=== PATIENT | male | born 1990 | race Caucasian/White ===

== ENCOUNTER 2025-09-25 12:03 | Observation (INO) | payer SELFPAY ==
[2025-09-25] VITALS (34 sets, daily range): BP systolic 106–129; BP diastolic 68–88; PULSE 52–75; RESP 12–22; TEMP 36.7–37.3; O2SAT 92–100; BMI 25.4
--- NOTE | ~2025-09-25 | XR_ITS ---
Examination: XR chest 2V Clinical History: chest pain Comparison: None Technique: PA and Lateral Findings: Cardiomediastinal silhouette normal size and configuration. Lungs clear. No acute bony abnormality. IMPRESSION: 1. No acute cardiopulmonary findings. Reviewed, dictated and finalized at location R. TRY FARM WORKER
--- NOTE | 2025-09-25 12:05 | ECG_ITS ---
Test Date: 2025-09-25 12:17:25 Measurements Intervals [place] Rate: 80 P: 43 [place]: 157 QRS: 70 QRSD: 92 T: 37 QT: 382 QTc: 442 Interpretive Statements SINUS RHYTHM No previous ECG available for comparison Electronically Signed On 09-25-2025 12:33:30 LANGUAGE PATHOLOGIST by Estela Tamayo M.D.
[2025-09-25 12:21] LABS: Hematocrit 43.3 % (42.0-52.0); Hemoglobin 15.5 g/dL (14.0-18.0); Immature Granulocyte Percent A 0.3 % (0-0.5); Lymphocytes Absolute Auto 4.28 K/mm3 (0.9-3.2); Mean Corpuscular HGB Conc 35.8 g/dl (32-36); Mean Corpuscular Hemoglobin 30.6 pg (26-34); Mean Corpuscular Volume 85.6 fl (80-100); Nucleated Red Blood Cells Absolute Auto 0.000 K/mm3 (0.0-0.012); Nucleated Red Blood Cells Perc 0.0 % (0.0-0.2); Platelet Count Result 213 k/mm3 (150-375); Red Blood Count 5.06 M/mm3 (4.6-6.20); White Blood Count 7.2 K/mm3 (4.5-10.0)
[2025-09-25 12:36] LABS: Alanine Aminotransferase 20 U/L (6-50); Albumin Level 4.6 g/dL (3.5-5.1); Alkaline Phosphatase 46 U/L (38-126); Anion Gap 6 mmol/L (4-12); Aspartate Amino Transferase 25 U/L (17-59); Bilirubin,Total 1.0 mg/dL (0.2-1.3); Blood Urea Nitrogen 19 mg/dL (9-20); Calcium 9.2 mg/dL (8.4-10.2); Carbon Dioxide 28 mmol/L (22-30); Chloride 103 mmol/L (98-107); Estimated CRCL calculation 110 ml/min; Estimated Glomerular Filt Rate > 60; Glucose 93 mg/dL (65-110); INR 1.1; Lipase 70 U/L (23-300); Potassium 4.2 mmol/L (3.4-5.0); Prothrombin Time 13.9 Seconds (11.1-14.7); Sodium 137 mmol/L (137-145); Total Protein 7.6 g/dL (6.3-8.2)
[2025-09-25 12:37] LABS: Partial Thromboplastin Time 32.0 Seconds (22.3-36.8)
[2025-09-25 12:43] LABS: Troponin I < 0.012 ng/mL (0.000-0.034)
[2025-09-25] MEDS: KETOROLAC 15 MG/ML VIAL (*BKC) IV PUSH (12:45)
[2025-09-25] MEDS: MORPHINE SULFATE (*CRX) 4 MG/ML INJ IV PUSH (12:45)
--- NOTE | 2025-09-25 12:50 | ED.GENADULT ---
HPI - General Adult General Chief complaint: Chest Pain Stated complaint: burn L chest pain Time Seen by Provider: 09/25/25 12:08 History of Present Illness HPI narrative: Patient 35-year-old gentleman presents emergency department with chief complaint of left-sided chest and back pain the patient states that he has been getting lightheaded and having near syncopal episodes with this the patient states the pain is sharp reports that it started primarily in the left back area the patient does originally described the pain as a burning like sensation Related Data Allergies Allergy/AdvReac Type Severity Reaction Status Date / Time No Known Allergies Allergy Verified 09/25/25 12:44 Review of Systems Review of Systems: A 10 system review of systems was completed on the patient and is negative except for what is stated in the HPI. Nursing and ancillary documentation was reviewed. Exam Narrative: GENERAL: Well-appearing, well-nourished, and in no acute distress. HEAD: Normocephalic, atraumatic. EYES: PERRLA and EOMI. ENT: Nares clear, no rhinorrhea or epistaxis. Mucous membranes moist. NECK: Supple. CHEST: Clear to auscultation. No respiratory distress. HEART: Regular rate and rhythm. No murmur heard. Normal peripheral pulses. ABDOMEN: Soft, nontender, nondistended, normal active bowel sounds. EXTREMITIES: Normal range of motion. No edema. SKIN: Warm, dry, no rash. NEURO: No focal deficits. Alert and oriented x3. PSYCH: Normal mood and affect. Course Vital Signs Vital signs: Vital Signs Temperature 36.7 C 09/25/25 12:08 Pulse Rate 74 09/25/25 12:08 Respiratory Rate 20 09/25/25 12:08 Blood Pressure 129/81 09/25/25 12:08 Pulse Oximetry 99 09/25/25 12:08 Oxygen Delivery Room Air 09/25/25 12:08 Temperature 36.7 C 09/25/25 12:08 Pulse Rate 66 09/25/25 15:15 Respiratory Rate 17 09/25/25 15:15 Blood Pressure 112/77 09/25/25 14:46 Pulse Oximetry 98 09/25/25 14:47 Oxygen Delivery Room Air 09/25/25 12:08 Medical Decision Making [facility] Narrative Medical decision making narrative: Differential diagnoses includes ACS, chest wall pain, atypical chest pain EKG showed ischemic changes Initial troponin was negative D-dimer was negative 3 hour increased to 0.026 Vital Signs Vital Signs: Vital Signs Temperature 36.7 C 09/25/25 12:08 Pulse Rate 74 09/25/25 12:08 Respiratory Rate 20 09/25/25 12:08 Blood Pressure 129/81 09/25/25 12:08 Pulse Oximetry 99 09/25/25 12:08 Oxygen Delivery Room Air 09/25/25 12:08 Temperature 36.7 C 09/25/25 12:08 Pulse Rate 66 09/25/25 15:15 Respiratory Rate 17 09/25/25 15:15 Blood Pressure 112/77 09/25/25 14:46 Pulse Oximetry 98 09/25/25 14:47 Oxygen Delivery Room Air 09/25/25 12:08 Lab Data 09/25/25 12:14 09/25/25 12:14 Labs: Lab Results 09/25/25 09/25/25 Range/Units 12:14 14:52 WBC 7.2 (4.5-10.0) K/mm3 RBC 5.06 (4.6-6.20) M/mm3 Hgb 15.5 (14.0-18.0) g/dL Hct 43.3 (42.0-52.0) % MCV 85.6 (80-100) fl MCH 30.6 (26-34) pg MCHC 35.8 (32-36) g/dl RDW 11.5 (11.5-14.5) % Plt Count 213 (150-375) k/mm3 MPV 9.3 (7.4-10.4) fl Immature Gran % (Auto) 0.3 (0-0.5) % Neut % (Auto) 32.9 L (45.5-73.1) % Lymph % (Auto) 59.3 H (18.3-44.2) % Spink % (Auto) 6.1 (2.6-8.5) % Eos % (Auto) 1.1 (0-4.4) % Baso % (Auto) 0.3 (0.2-1.2) % Lymph # (Auto) 4.28 H (0.9-3.2) K/mm3 Spink # (Auto) 0.4 (0.1-0.6) K/mm3 Eos # (Auto) 0.1 (0-0.3) K/mm3 Baso # (Auto) 0.0 (0.0-0.1) K/mm3 Abs Immat Gran (auto) 0.02 (0.00-0.031) K/mm3 Absolute Neuts (auto) 2.4 (1.3-6.7) K/mm3 Absolute Nucleated RBC 0.000 (0.0-0.012) K/mm3 Nucleated RBC % 0.0 (0.0-0.2) % PT 13.9 (11.1-14.7) Seconds INR 1.1 APTT 32.0 (22.3-36.8) Seconds D-Dimer < 0.27 (<0.48) ug/mL Sodium 137 (137-145) mmol/L Potassium 4.2 (3.4-5.0) mmol/L Chloride 103 (98-107) mmol/L Carbon Dioxide 28 (22-30) mmol/L Anion Gap 6 (4-12) mmol/L BUN 19 (9-20) mg/dL Creatinine 0.94 (0.7-1.3) mg/dL Estim Creat Clear Calc 110 ml/min Estimated GFR > 60 (59 - ) Glucose 93 (65-110) mg/dL Calcium 9.2 (8.4-10.2) mg/dL Total Bilirubin 1.0 (0.2-1.3) mg/dL AST 25 (17-59) U/L ALT 20 (6-50) U/L Alkaline Phosphatase 46 (38-126) U/L Troponin I < 0.012 0.026 D (0.000-0.034) ng/mL Total Protein 7.6 (6.3-8.2) g/dL Albumin 4.6 (3.5-5.1) g/dL Lipase 70 (23-300) U/L Discharge Plan Discharge Clinical Impression: Atypical chest pain Patient Disposition: Still a Patient Condition: Stable Instructions: Chest Pain (ED) Patient Language: [place]i Follow-up/Referrals: Guero Padilla MD [Physician, Family Practice] PHYSICIAN,HEAT TREAT WORKER [Primary Care Provider, Internal Medicine]
--- NOTE | 2025-09-25 14:54 | ECG_ITS ---
Test Date: 2025-09-25 14:59:56 Measurements Intervals [place] Rate: 55 P: 35 IN: 162 QRS: 66 QRSD: 106 T: 42 QT: 419 QTc: 401 Interpretive Statements SINUS BRADYCARDIA Compared to ECG 09/25/2025 12:17:25 Sinus rhythm no longer present Electronically Signed On 09-25-2025 22:52:19 INBOUND SALES ADVISOR by Estela Tamayo M.D.
[2025-09-25 15:21] LABS: Troponin I 0.026 ng/mL (0.000-0.034)
--- NOTE | 2025-09-25 15:22 | PC.NURSE ---
Patient states his chest is still burning and nobody has come in to talk with him about results and nobody has looked at his blood pressure. RN educated patient that we have been monitoring his vitals and we are waiting for labs to return. Patient pulled off all his leads on his chest and put clothing back on. RN explained that he could not leave with an IV in his arm and notified MD about patient wanting to leave ED.
[2025-09-25] MEDS: ASPIRIN 81 MG CHEWABLE TABLET 324 MG PO (16:02)
--- NOTE | 2025-09-25 16:21 | P.HP_ITS ---
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 The patient presents here from home on 09/25 for further evaluation of chest pain and dizziness/blurred vision with position changes. He reports onset of chest pain approximately 3 days ago. He describes the chest pain as left-sided more so in his axilla region, burning, radiation into his upper back/shoulder blades, initially intermittent and not constant, and no aggravating or alleviating factors. It is accompanied by a dizziness and blurred vision/near syncopal episodes with position changes. He denies shortness of breath, nausea, vomiting, diaphoresis, or GERD like symptoms accompanying his chest pain episodes. He does report he has been experiencing night sweats for some time, 30 lb of weight loss in the past month, and has had intermittent dark tarry stools for the past few months as well as some changes in bowel habits (more constipated) and now has stringy/white mucus. He reports a family history of cancer including lung cancer. Currently vapes. Has never underwent a colonoscopy previously. He also denies alcohol use, drug use be on marijuana, or previous IV drug use. He reports his only heart history is meningitis that caused endocarditis back when he was 18 which caused mild left-sided heart failure. He reports his last echo showed an EF of 55% a few months ago. Initial VS at presentation: 98? F, HR 74, R 20, 129/81, and 99% on RA. ED workup showed: No leukocytosis, no anemia, normal coags, D-dimer negative, no significant electrolyte derangements, renal function within normal limits, initial troponin negative and repeat 0.026. CXR showed no acute cardiopulmonary findings. Initial EKG showed sinus rhythm, rate [address] elevations or depressions. Review of Systems Review of Systems: All systems reviewed & are unremarkable except as noted in HPI and below PMFSH Past Medical History Medical History (Updated 09/25/25 @ 18:10 by Taryn Carlos, TRANSPORTATION TECHNICIAN) Depression Anxiety Degenerative disc disease History of valvular heart disease Systolic dysfunction History of meningitis Surgical History Surgical History (Updated 09/25/25 @ 18:10 by Taryn Carlos APRN) History of spinal fusion Social History Social History Smoking status: Current every day smoker Tobacco type: e-cigarettes/vaping Alcohol intake: never Substance use: current Substance use type: marijuana Lack of Transportation: No Lack of Food: Never True Current Housing: I Have Housing Concerned About Future Housing: No Difficulty Paying Gas/Electric Bills: No Difficulty Paying for Meds: No Currently Unemployed: No Education: Decline to Answer Difficulty w/ Childcare or Family Care: No Spiritual care concerns: No Meds Home Medications and Allergies Home Medications ?Medication ?Instructions ?Recorded ?Confirmed ?Type gabapentin 600 mg tablet 600 mg PO TID 09/25/2509/25 History Allergies Allergy/AdvReac Type Severity Reaction Status Date / Time No Known Allergies Allergy Verified 09/25/25 17:41 Vital Signs Vital Signs - 24 hr 09/25/25 12:08 09/25/25 12:41 09/25/25 12:45 Temperature 98.0 F Pulse Rate 74 68 66 Respiratory Rate 20 15 18 Blood Pressure 129/81 Pulse Oximetry 99 95 97 Oxygen Delivery Room Air 09/25/25 12:46 09/25/25 12:47 09/25/25 13:22 Temperature Pulse Rate 70 64 61 Respiratory Rate 19 13 12 Blood Pressure 122/88 Pulse Oximetry 97 98 96 Oxygen Delivery 09/25/25 13:30 09/25/25 13:31 09/25/25 13:46 Temperature Pulse Rate 60 67 58 L Respiratory Rate 16 17 16 Blood Pressure 106/68 113/69 Pulse Oximetry 97 97 97 Oxygen Delivery 09/25/25 13:47 09/25/25 14:00 09/25/25 14:01 Temperature Pulse Rate 61 59 L 59 L Respiratory Rate 16 15 16 Blood Pressure 106/73 Pulse Oximetry 98 97 98 Oxygen Delivery 09/25/25 14:28 09/25/25 14:30 09/25/25 14:31 Temperature Pulse Rate 60 53 L 54 L Respiratory Rate 21 H 16 16 Blood Pressure 117/80 Pulse Oximetry 98 98 99 Oxygen Delivery 09/25/25 14:46 09/25/25 14:47 09/25/25 15:01 Temperature Pulse Rate 57 L 68 54 L Respiratory Rate 16 17 16 Blood Pressure 112/77 Pulse Oximetry 99 98 Oxygen Delivery 09/25/25 15:15 09/25/25 16:03 09/25/25 16:03 Temperature Pulse Rate 66 55 L 72 Respiratory Rate 17 Blood Pressure 112/73 123/83 Pulse Oximetry Oxygen Delivery 09/25/25 16:07 Temperature Pulse Rate 67 Respiratory Rate Blood Pressure 114/79 Pulse Oximetry Oxygen Delivery Exam Const: General: comfortable and no acute distress Other: , male, nontoxic appearance HENMT: Face/Nose/Sinus: Normal nares present Mouth: Yes moist mucous membranes Eyes: General: appearance normal, both eyes and all related structures Sclera: sclerae normal Pupils: Equal, round and reactive pupils present EOM: EOMs intact bilaterally Resp: Effort & Inspection: normal respiratory effort Auscultation: clear to auscultation bilaterally Cardio: Rate: regular rate Rhythm: regular rhythm Other: S1-S2 present without murmur, rub, ectopy GI: Other: Abdomen soft, nondistended, nontender. Normoactive bowel sounds in all quadrants. Skin: General skin exam: normal color and no rashes or lesions noted Wounds: no wounds Neuro: Speech: normal speech Motor exam (neuro): 5/5 motor strength present throughout Sensory Exam: normal sensation Other: A&O x4 Extrem: General: normal to inspection Psych: Mental Status: mental status grossly normal Affect: normal affect Other: Good insight and judgment, pleasant H&P: Results Labs Labs: Short CBC 09/25/25 Range/Units 12:14 WBC 7.2 (4.5-10.0) K/mm3 Hgb 15.5 (14.0-18.0) g/dL Hct 43.3 (42.0-52.0) % Plt Count 213 (150-375) k/mm3 BMP 09/25/25 12:14 Sodium 137 Potassium 4.2 Chloride 103 Carbon Dioxide 28 BUN 19 Creatinine 0.94 Glucose 93 Calcium 9.2 Cardiac Enzymes 09/25/25 09/25/25 Range/Units 12:14 14:52 Troponin I < 0.012 0.026 D (0.000-0.034) ng/mL Liver Function 09/25/25 Range/Units 12:14 Total Bilirubin 1.0 (0.2-1.3) mg/dL AST 25 (17-59) U/L ALT 20 (6-50) U/L Alkaline Phosphatase 46 (38-126) U/L Albumin 4.6 (3.5-5.1) g/dL Assessment and Plan Assessment and plan (1) Atypical chest pain: Code(s): R07.89 - Other chest pain Status: Acute Assessment and Plan: Patient here with left axilla/left chest pain that radiates into his back/shoulder blades. Onset 3 days ago and was initially intermittent, not constant. Accompanied by dizziness, blurred vision in near syncope with position changes. Reports a history of heart failure/endocarditis secondary to meningitis when he was 18, last echo was a few months ago and showed an EF of 55 %. Chest pain remains present despite aspirin, Toradol, and morphine. BP currently on the low end of normotensive, giving IV fluids and full trial nitro once BP slightly improved. - cardiology consulted - trend troponins, currently showing a mild up trend but remains negative - start ASA daily - check lipid panel - SL nitro PRN - telemetry monitoring (2) Dizziness: Code(s): R42 - Dizziness and giddiness Status: Acute Assessment and Plan: - check orthostatics >> negative in the ED - vital signs reviewed from the emergency department, mild bradycardia in the 50s and no acute hypotension - IV fluids: 1L bolus -> LR 150 mL/hr x1L (3) Change in stool: Code(s): R19.5 - Other fecal abnormalities Status: Acute Assessment and Plan: Patient has been experiencing night sweats, 30 lb weight loss in past month, and intermittent dark tarry stools as well as a change in bowel habits. He reports he has been newly constipated which has not previously been an issue for him. Patient is also endorsing new white/stringy discharge/mucus in his stool. Family history of lung cancer. Denies any known family history of colon cancer. No personal history of cancer. Has never undergone a colonoscopy previously. - referral for colonoscopy at discharge Plan Diet: Regular GI Prophylaxis: N/a DVT Prophylaxis: SCDs IV fluids: LR 150 mL/hr x1L Lines/Tubes: Peripheral IV Code Status: Full code Quality VTE Prophylaxis VTE prophylaxis: mechanical ordered Hospitalist MIPS Advance Care Plan I have confirmed that the patient's Advanced Care Plan is present, code status is documented, or surrogate decision maker is listed in patient medical record.: Yes Medication Reconciliation I have utilized all available resources to obtain, update and review the patients current medications (includes all prescriptions, OTC, herbals, cannabis, and nutritional supplements).: Yes
--- NOTE | 2025-09-25 17:01 | WPCEDHO ---
ED Hand Off Checklist All vitals saved:YES IV Site documented:YES All med administrations documented:YES Triage Note Triage Note Patient has been having left 09/25/25 12:08 sided chest, back and shoulder pain, dizziness when he stands with blurry vision for three days , today symptoms are worse. Allergies No Known Allergies Allergy (Verified 09/25/25 12:44) Administered/Completed Medications Discontinued Medications Aspirin (Aspirin 81 Mg Chewable Tablet) 324 mg PO ONCE STA Stop: 09/25/25 12:06 Last Admin: 09/25/25 16:02 Dose: 324 mg Documented By: AVERY Ketorolac Tromethamine (Ketorolac 15 Mg/Ml Vial (*Bkc)) 15 mg IV PUSH ONCE ONE Stop: 09/25/25 12:24 Last Admin: 09/25/25 12:45 Dose: 15 mg Documented By: AVERY Miscellaneous Information (Please Add Drug Allergy Info To Patient Profile.) 1 each XX CLARIFY KOREY Stop: 10/25/25 00:00 Last Admin: 09/25/25 12:45 Dose: Not Given Documented By: AVERY Non-Admin Reason: Order Discontinued Morphine Sulfate (Morphine Sulfate (*Crx) 4 Mg/Ml Inj) 4 mg IV PUSH ONCE STA Stop: 09/25/25 12:24 Last Admin: 09/25/25 12:45 Dose: 4 mg Documented By: AVERY Notes 09/25/25 15:22 Nurse Note by Sharee Mi Patient states his chest is still burning and nobody has come in to talk with him about results and nobody has looked at his blood pressure. RN educated patient that we have been monitoring his vitals and we are waiting for labs to return. Patient pulled off all his leads on his chest and put clothing back on. RN explained that he could not leave with an IV in his arm and notified MD about patient wanting to leave ED. Initialized on 09/25/25 15:22 - END OF NOTE Interventions/Assessments IV / Saline Lock, Insert Start: 09/25/25 12:05 Freq: STAT Status: Active Protocol: Document 09/25/25 12:14 [facility] (Rec: 09/25/25 12:14 [facility] [id number]) IV Assessment Peripheral Access Left Antecubital IV Catheter Access Initiated IV Insertion Date 09/25/25 IV Insertion Time 12:14 Catheter Gauge 20 IV Site Assessment WNL IV Care and WNL Maintenance PA: Cardiovascular Assessment Start: 09/25/25 12:04 Freq: Status: Active Protocol: Document 09/25/25 12:19 [facility] (Rec: 09/25/25 12:19 [facility] [id number]) Cardiovascular Assessment Cardiovascular Chest Pain,Dizziness Symptoms Skin Description Normal Color Heart Sounds Normal PA: Neurological Assessment Start: 09/25/25 12:19 Freq: Status: Active Protocol: Document 09/25/25 12:19 [facility] (Rec: 09/25/25 12:20 [facility] [id number]) Neurological Assessment Level of Alert Consciousness Arousable to Verbal Orientation Oriented to Person Neurological Dizziness Symptoms Hallucination Type None Behavior Cooperative Patient Able to Comprehend Comprehension Memory Description Intact Ability to Maintain Normal Balance Facial Symmetry Symmetrical Speech Pattern Clear Ability to Swallow Normal Tongue Position Midline Finger to Nose Test Normal Performance Heel to Fisher Test Normal Performance Left Hand(s) Sensation Numb,Tingling Description [place] Coma Scale Eyes Open Verbal Oriented and Alert Motor Follows Commands [place] Coma Total 15 Score PA: Respiratory Assessment Start: 09/25/25 12:04 Freq: Status: Active Protocol: Document 09/25/25 12:19 [facility] (Rec: 09/25/25 12:19 [facility] [id number]) Respiratory Assessment Symptoms None Effort Normal Last Vital Signs Temperature 98.0 F 09/25/25 12:08 Pulse Rate 53 L 09/25/25 16:31 Respiratory Rate 18 09/25/25 16:31 Pulse Oximetry 100 09/25/25 16:31 Blood Pressure 111/73 09/25/25 16:31 Blood Pressure Mean 85 09/25/25 16:31 Blood Pressure Position Standing 09/25/25 16:07 Oxygen Delivery Room Air 09/25/25 12:08 Weight 91.4 kg 09/25/25 12:08 Last Result - Abnormals Only Neut % (Auto) 32.9 % (45.5-73.1) L 09/25/25 12:14 Lymph % (Auto) 59.3 % (18.3-44.2) H 09/25/25 12:14 Lymph # (Auto) 4.28 K/mm3 (0.9-3.2) H 09/25/25 12:14 Most Recent Suicide Severity Rating Suicide Severity Rating NO RISK INDICATED 09/25/25 12:08
--- NOTE | 2025-09-25 17:16 | ADMGEN ---
This patient, Winston Sykes, was admitted to IMU Room 205-02 @ 1716. Patient/family oriented to hospital policies and general routines including ID bracelet, bed and alarms, visiting hours, pain management, procedures, bathroom and other care routines, personal items, smoking policy, room service/diet, and visiting hours. Information on how to activate the Rapid Response Team has been discussed. Patient/Family are encouraged to report perceived risks to care and to ask questions if they do not understand what they are told or what they should do.
[2025-09-25 17:27] LABS: Cannabinoid Screen Urine Positive (Negative)
[2025-09-25] MEDS: LACTATED RINGERS 1,000 ML 999 ML IV CONT (17:48)
[2025-09-25 18:36] LABS: Troponin I < 0.012 ng/mL (0.000-0.034)
[2025-09-25] MEDS: GABAPENTIN 300 MG CAPSULE 600 MG PO (18:46)
[2025-09-25] MEDS: LACTATED RINGERS 1,000 ML 150 ML IV CONT (18:47)
[2025-09-25] MEDS: ACETAMINOPHEN 325 MG TABLET 650 MG PO (18:49)
--- NOTE | 2025-09-25 19:54 | PC.NURSE ---
Patient left AMA at 1952; nurse removed IV. Unable to obtain signature on AMA document. Charge & warehouse pricing and inventory clerk were both notified.
--- NOTE | 2025-09-25 20:00 | PC.NURSE ---
Spoke with provider, Taryn, updated on patient leaving AMA and was not able to get documentation from patient.
== END 2025-09-25 19:53 | disposition left against medical advice (07) ==
LOC: ANHED 15:42 → ANHIMU 17:00
PROVIDERS: Emergency Medicine; Admitting Provider Internal Medicine; Emergency Provider Emergency Medicine; Visit Provider Internal Medicine
DX: R07.89 Other chest pain (principal); R42 Dizziness and giddiness; R19.5 Other fecal abnormalities; R63.4 Abnormal weight loss; F41.8 Other specified anxiety disorders; Z80.1 Family history of malignant neoplasm of trachea, bronchus and lung; F17.290 Nicotine dependence, other tobacco product, uncomplicated; Z53.29 Procedure and treatment not carried out because of patient's decision for other reasons
CPT/HCPCS: 36415; 71046; 80053; 80307; 83690; 84484; 85025; 85380; 85610; 85730; 93005; 96374; 96375; 99285; A9270; G0378; J1885; J2270; J7120